=== PATIENT | female | born 1970 | race Caucasian/White ===

== ENCOUNTER → 2022-08-05 | Day surgery (SDC) | payer OTHER ==
[~2022-08-05] VITALS: Ht 175.3 cm; Wt 60.3 kg
[~2022-08-05] MED LIST: PNEU16DI2; SYNTHROID150 MCG
== END | disposition home or self-care (01) ==
LOC: ADM 08-03 15:00 → CIR.AMB 06:52
PROVIDERS: ATTEND Surgery
DX: N60.91 Unspecified benign mammary dysplasia of right breast (principal); N60.21 Fibroadenosis of right breast; N60.81 Other benign mammary dysplasias of right breast; E03.9 Hypothyroidism, unspecified; Z20.822 Contact with and (suspected) exposure to COVID-19
CPT/HCPCS: 19301; 19285; L8699